=== PATIENT | female | born 1990 | race Caucasian/White ===

== ENCOUNTER 2016-12-13 01:35 | Emergency (ER) | payer SELFPAY ==
[~2016-12-13] VITALS: Ht 160 cm; Wt 48.4 kg
[2016-12-13 01:37] VITALS: BP 124/89
== END 2016-12-13 03:17 | disposition left against medical advice (07) ==
LOC: EME 01:35
DX: K62.89 Other specified diseases of anus and rectum (principal); K62.5 Hemorrhage of anus and rectum; Z53.21 Procedure and treatment not carried out due to patient leaving prior to being seen by health care provider